=== PATIENT | male | born 1940 | race Caucasian/White ===

== ENCOUNTER → 2021-08-12 10:12 | Outpatient (CLI) | payer MEDICARE, SELFPAY | PROVIDERS: Visit Provider Ophthalmology | DX: Z01.812 Encounter for preprocedural laboratory examination (principal); U07.1 COVID-19 | CPT/HCPCS: C9803; U0003; U0005 ==

== ENCOUNTER 2021-09-12 10:26 | Day surgery (SDC) | payer MEDICARE, SELFPAY ==
[2021-09-06 12:00] VITALS: BMI 50.5
[2021-09-12] VITALS (8 sets, daily range): BP systolic 111–135; BP diastolic 44–81; PULSE 47–68; RESP 18–20; TEMP 36.1–36.4; O2SAT 96–100
[2022-04-19 10:57] LABS: POC Glucose,Bedside 142 (70-110)
== END 2021-09-12 14:30 | disposition home or self-care (01) ==
LOC: OR 10:30
PROVIDERS: PCP Internal Medicine; Visit Provider Ophthalmology
DX: H25.813 Combined forms of age-related cataract, bilateral (principal); H02.834 Dermatochalasis of left upper eyelid; M19.90 Unspecified osteoarthritis, unspecified site; E11.9 Type 2 diabetes mellitus without complications; I10 Essential (primary) hypertension; Z88.0 Allergy status to penicillin; Z88.2 Allergy status to sulfonamides; Z88.6 Allergy status to analgesic agent; E66.8 Other obesity; Z90.49 Acquired absence of other specified parts of digestive tract; Z83.3 Family history of diabetes mellitus; Z80.9 Family history of malignant neoplasm, unspecified; Z82.49 Family history of ischemic heart disease and other diseases of the circulatory system
CPT/HCPCS: 66984; 82962; V2632

== ENCOUNTER 2021-10-10 09:56 | Day surgery (SDC) | payer MEDICARE, SELFPAY ==
[2021-10-10 11:13] VITALS: BP 142/88; PULSE 58; RESP 18; TEMP 36.5; O2SAT 100; BMI 50.5
[2021-10-10 12:35] VITALS: BP 134/63; PULSE 62; RESP 16; O2SAT 99
[2021-10-10 12:40] VITALS: BP 136/81; PULSE 60; RESP 16; O2SAT 99
[2021-10-10 12:45] VITALS: BP 136/74; PULSE 62; RESP 16; O2SAT 99
[2021-10-10 12:50] VITALS: BP 149/87; PULSE 61; RESP 16; O2SAT 100
[2021-10-10 13:05] VITALS: BP 135/74; PULSE 65; RESP 16; TEMP 36.4; O2SAT 92
[2022-04-19 10:58] LABS: POC Glucose,Bedside 112 (70-110)
== END 2021-10-10 13:15 | disposition home or self-care (01) ==
LOC: OR 09:59
PROVIDERS: PCP Internal Medicine; Visit Provider Ophthalmology
DX: H25.813 Combined forms of age-related cataract, bilateral (principal); H53.149 Visual discomfort, unspecified; H02.834 Dermatochalasis of left upper eyelid; M19.90 Unspecified osteoarthritis, unspecified site; E11.9 Type 2 diabetes mellitus without complications; I10 Essential (primary) hypertension; Z90.49 Acquired absence of other specified parts of digestive tract; Z80.9 Family history of malignant neoplasm, unspecified; Z83.3 Family history of diabetes mellitus; Z82.49 Family history of ischemic heart disease and other diseases of the circulatory system
CPT/HCPCS: 66984; 82962; V2632